=== PATIENT | female | born 2000 | race Caucasian/White ===

== ENCOUNTER 2020-07-16 19:28 | Emergency (ER) | payer OTHER, MEDICAID ==
[~2020-07-16] VITALS: Ht 157.5 cm; Wt 74.0 kg
[2020-07-16 21:35] VITALS: BP 135/73
== END 2020-07-16 22:01 | disposition home or self-care (01) ==
LOC: ER 19:28
DX: O26.892 Other specified pregnancy related conditions, second trimester (principal); K62.89 Other specified diseases of anus and rectum; Z3A.16 16 weeks gestation of pregnancy
CPT/HCPCS: 76805; 99284